=== PATIENT | female | born 2000 | race Caucasian/White ===

== ENCOUNTER 2024-01-08 19:22 | Emergency (ER) | payer BC ==
[~2024-01-08] VITALS: Ht 172.7 cm; Wt 77.3 kg
[2024-01-08 19:24] VITALS: TEMP 98.3
[2024-01-08] MEDS: methylPREDNISolone sod succ 125mg/2ml vial IV ONE (19:40)
[2024-01-08] MEDS: diphenhydrAMINE 50 mg/ml inj IV ONE (19:40)
[2024-01-08] MEDS: epiNEPHrine 1 mg/ml inj SQ ONE (19:50)
[2024-01-08] MEDS: famotidine/PF 10 mg/ml inj IV ONE (20:08)
[2024-01-08] MEDS: normal saline 1000ml 1,000 ML IVB ONE (20:10)
[2024-01-08] MEDS ORDERED: EPIN0.3P3 IM (21:25)
[2024-01-08 21:45] VITALS: BP 121/76; PULSE 74; RESP 16; O2SAT 98
== END 2024-01-08 21:55 | disposition home or self-care (01) ==
LOC: ER 19:24
DX: T78.1XXA Other adverse food reactions, not elsewhere classified, initial encounter (principal); R06.02 Shortness of breath; Z91.030 Bee allergy status; X58.XXXA Exposure to other specified factors, initial encounter
CPT/HCPCS: 96361; 96372; 96374; 96375; 99284; J0171; J1200; J2919; J3490; J7030